=== PATIENT | male | born 1975 | race Caucasian/White ===

== ENCOUNTER 2018-08-31 20:10 | Emergency (ER) | payer SELFPAY ==
[~2018-08-31] VITALS: Ht 188 cm; Wt 95.3 kg
[2018-08-31 20:27] VITALS: BP 140/83
== END 2018-08-31 21:15 | disposition home or self-care (01) ==
LOC: ER 21:13
DX: K04.7 Periapical abscess without sinus (principal); F17.200 Nicotine dependence, unspecified, uncomplicated